=== PATIENT | female | born 1960 | race Caucasian/White ===

== ENCOUNTER 2020-11-18 05:28 | Day surgery (SDC) | payer OTHER ==
[2020-10-22 14:03] LABS: HCT 42.3 % (37.0-47.0); HGB 14.8 g/dl (12.5-16.0); MCH 31.9 pg (25.0-31.0); MCV 91.2 fL (78.0-100.0); MPV 9.8 fL (6.0-9.5); RBC 4.64 M/uL (4.20-5.40); RDW 12.3 % (11.5-14.0); WBC 5.6 K/uL (4.0-10.5)
[2020-10-22 14:43] LABS: CREATININE 0.83 mg/dL (0.51-0.95); POTASSIUM 4.2 mmol/L (3.5-5.1); TOTAL PROTEIN 7.5 g/dL (6.4-8.2)
[2020-10-22 14:44] LABS: ALBUMIN 4.2 g/dL (3.4-5.0); BILIRUBIN - TOTAL 0.4 mg/dL (0.2-1.0); GLOBULIN (CALCULATION) 3.3 g/dL
[2020-10-22 14:53] LABS: PROTHROMBIN TIME 12.5 SECONDS (11.4-13.6)
[2020-10-22 15:36] LABS: BILIRUBIN NEGATIVE (NEGATIVE); BLOOD NEGATIVE Ery/uL (NEGATIVE); CLARITY CLEAR (CLEAR); COLOR YELLOW (YELLOW); GLUCOSE (U) NORMAL (NORMAL); LEUKOCYTES NEGATIVE Leu/uL (NEGATIVE); NITRITE NEGATIVE (NEGATIVE); PROTEIN NEGATIVE (NEGATIVE); SPECIFIC GRAVITY 1.025 (1.001-1.030); UROBILINOGEN 0.2 mg/dL (0.2-1.0)
[~2020-11-18] VITALS: Ht 175 cm; Wt 100.0 kg
[~2020-11-18 05:28] MED LIST: ATORVASTATIN CA20 MG PO; LAMICTAL100 MG PO; LISINOPRIL20 MG PO; MOBIC7.5 MG PO; NEXIUM20 M1 PO; VENTOLIN HFA IN18 GM INH; VITAMIN D3 COM1 EACH PO
[2020-11-18] MEDS ORDERED: VITAMIN E45 MG PO (05:46)
[2020-11-18] MEDS ORDERED: METAMUCIL PO (05:47)
--- NOTE | 2020-11-18 14:39 | NUR ---
PT/OT appt 11/20/20 1215 @ [facility] Therapy At [facility]
[2020-11-19 06:19] LABS: BASOPHIL 0.1 % (0-2); EOSINOPHIL 0.2 % (0-5); HCT 34.3 % (37.0-47.0); HGB 11.3 g/dl (12.5-16.0); LYMPHOCYTE 12.1 % (15-48); MCH 31.4 pg (25.0-31.0); MCHC 32.9 g/dL (32.0-36.0); MCV 95.3 fL (78.0-100.0); MONOCYTE 12.4 % (0-12); MPV 10.1 fL (6.0-9.5); NEUTROPHIL 74.9 % (41-80); NRBC 0; PLT 184 K/uL (150-400); RDW 12.5 % (11.5-14.0); WBC 8.9 K/uL (4.0-10.5)
[2020-11-19 06:41] LABS: BUN/CREAT RATIO (CALC) 19.5 RATIO; CREATININE 0.77 mg/dL (0.51-0.95); POTASSIUM 4.6 mmol/L (3.5-5.1)
[2020-11-19] MEDS ORDERED: ULTRA-LIGHT RO1 EACH XX (08:47)
[2020-11-19] MEDS ORDERED: 3IN1 COMMODE XX (08:47)
[2020-11-19] MEDS ORDERED: FEOSOL325 MG PO (08:53)
[2020-11-19] MEDS ORDERED: XARELTO10 MG PO (08:53)
[2020-11-19] MEDS ORDERED: OXYCODONE-ACET1 EAC1 PO (08:53)
== END 2020-11-19 14:23 | disposition home or self-care (01) ==
LOC: FAS 05:28 → FMS 08:59 → FAS 11-19 14:23
PROVIDERS: Legal Medicine
DX: M17.12 Unilateral primary osteoarthritis, left knee (principal); G89.29 Other chronic pain; I10 Essential (primary) hypertension; K21.9 Gastro-esophageal reflux disease without esophagitis; E78.5 Hyperlipidemia, unspecified; Z79.899 Other long term (current) drug therapy; Z96.651 Presence of right artificial knee joint
CPT/HCPCS: 36415; 71046; 73560; 80048; 80053; 81003; 85025; 85610; 85730; 86850; 86900; 86901; 94010; 94760; 94762; 97110; 97116; 97161; 97166; 97535; C1713; C1776; J0171; J0697; J0735; J1100; J1170; J1885; J2250; J2270; J2405; J2704; J2795; J3010; J7120